=== PATIENT | female | born 1985 | race Caucasian/White ===

== ENCOUNTER 2017-05-07 13:27 | Inpatient (IN) | END 2017-05-09 21:25 | disposition home or self-care (01) | DRG 778 ==

== ENCOUNTER 2017-08-24 11:12 | Inpatient (IN) | END 2017-08-27 21:20 | disposition home or self-care (01) | DRG 766 ==

== ENCOUNTER 2017-11-03 10:49 | Emergency (ER) | END 2017-11-03 12:31 | disposition home or self-care (01) ==

== ENCOUNTER 2018-09-04 13:29 | Emergency (ER) | payer MEDICAID, OTHER ==
[~2018-09-04] VITALS: Ht 157.5 cm; Wt 88.5 kg
[~2018-09-04 13:29] MED LIST: AMOX1TAB10 PO; CIPR7.5D RIGHT EAR; PREN-99 PO
[2018-09-04 13:59] VITALS: BP 149/74; PULSE 91; RESP 16; Ht 157.5 cm; Wt 88.5 kg
--- NOTE | 2018-09-04 15:31 | ERD ---
ER Documentation Chief Complaint Chief Complaint L sided AP x2wks; bilat lower back pain x5d. no NVD, no dysuria. HPI 33-year-old female is here with left-sided abdominal pain that she is had for 2 weeks intermittently. Also 5 days of lower back pain. She finished a course of Macrobid last week for urinary tract infection. She now has no urinary symptoms. No fever. No nausea vomiting or diarrhea. ROS All systems reviewed and are negative except as per history of present illness. Medications Home Meds Active Scripts Ciprofloxacin Hcl/Dexameth (Ciprodex Otic Suspension) 7.5 Ml Drops.susp, 4 DROP RIGHT EAR BID for 7 Days, EA Prov:LYNETTE GAITAN PA-C 11/03/17 Amoxicillin/Potassium Clav (Amox-Clav 875-125 mg Tablet) 875-125 mg Tab, 1 TAB PO BID for 7 Days, #14 TAB Prov:LYNETTE GAITAN PA-C 11/03/17 Reported Medications Vit #76/Iron,Carb/FA (Pnv 29-1 Tablet) 1 Each Tablet, 1 EACH PO DAILY, TAB 05/07/17 Allergies Allergies: Coded Allergies: No Known Allergy (Unverified , 09/04/18) PMhx/Soc History of Surgery: Yes (c section) Anesthesia Reaction: No Hx Neurological Disorder: No Hx Respiratory Disorders: No Hx Cardiac Disorders: No Hx Psychiatric Problems: No Hx Miscellaneous Medical Probl: No Hx Alcohol Use: No Hx Substance Use: No Hx Tobacco Use: No Smoking Status: Never smoker FmHx Family History: No diabetes Physical Exam Vitals Vital Signs Date Temp Pulse Resp B/P (MAP) Pulse Ox O2 O2 Flow FiO2 Time Delivery Rate 09/04/18 98.3 91 16 149/74 98 13:59 (99) Physical Exam INITIAL VITAL SIGNS: Reviewed by me GENERAL: Awake, alert and oriented x 4, well appearing, nontoxic, speaking in full sentences. No acute distress RESPIRATORY: Clear to auscultation bilaterally. Symmetric chest wall rise. No wheezing or rales. No accessory muscle use. CV: Regular rate and rhythm. No murmurs, rubs, or gallops. ABDOMEN: Soft, non-distended. Nontender. Negative [place]. Negative [place] point tenderness. No CVA tenderness bilaterally. No guarding. No rebound. Result Diagram: 09/04/18 1442 09/04/18 1442 Results 24 hrs Laboratory Tests Test 09/04/18 14:42 09/04/18 14:46 White Blood Count 13.0 10^3/ul Red Blood Count 4.75 10^6/ul Hemoglobin 13.5 g/dl Hematocrit 41.7 % Mean Corpuscular Volume 87.8 fl Mean Corpuscular Hemoglobin 28.4 pg Mean Corpuscular Hemoglobin Concent 32.4 g/dl Red Cell Distribution Width 12.9 % Platelet Count 372 10^3/UL Mean Platelet Volume 8.5 fl Immature Granulocytes % 0.300 % Neutrophils % 63.6 % Lymphocytes % 28.7 % Monocytes % 6.5 % Eosinophils % 0.6 % Basophils % 0.3 % Nucleated Red Blood Cells % 0.0 /100WBC Immature Granulocytes # 0.040 10^3/ul Neutrophils # 8.2 10^3/ul Lymphocytes # 3.7 10^3/ul Monocytes # 0.9 10^3/ul Eosinophils # 0.1 10^3/ul Basophils # 0.0 10^3/ul Nucleated Red Blood Cells # 0.0 10^3/ul Urine Color COLORLESS Urine Clarity CLEAR Urine pH 6.0 Urine Specific [place] 1.001 Urine Ketones NEGATIVE mg/dL Urine Nitrite NEGATIVE mg/dL Urine Bilirubin NEGATIVE mg/dL Urine Urobilinogen NEGATIVE mg/dL Urine Leukocyte Esterase NEGATIVE Fabrizio/ul Urine Hemoglobin NEGATIVE mg/dL Urine Glucose NEGATIVE mg/dL Urine Total Protein NEGATIVE mg/dl Sodium Level 138 mmol/L Potassium Level 3.7 mmol/L Chloride Level 102 mmol/L Carbon Dioxide Level 28 mmol/L Anion Gap 8 Blood Urea Nitrogen 12 mg/dl Creatinine 0.65 mg/dl Est Glomerular Filtrat Rate mL/min > 60 mL/min Glucose Level 94 mg/dl Calcium Level 9.0 mg/dl Total Bilirubin 0.4 mg/dl Direct Bilirubin 0.00 mg/dl Indirect Bilirubin 0.4 mg/dl Aspartate Amino Transf (AST/SGOT) 23 IU/L Alanine Aminotransferase (ALT/SGPT) 20 IU/L Alkaline Phosphatase 111 IU/L Total Protein 7.5 g/dl Albumin 4.3 g/dl Globulin 3.20 g/dl Albumin/Globulin Ratio 1.34 Lipase 62 U/L POC Beta HCG, Qualitative NEGATIVE Procedures/MDM The differential diagnosis includes but is not limited to appendicitis, cholelithiasis, cholecystitis, pancreatitis, hepatitis, gastritis, peptic ulcer disease, bowel obstruction, diverticulitis, renal disease including stones, torsion, AAA, pyelonephritis, and others. Laboratory analysis shows no evidence of acute emergent abnormality. No evidence of significant leukocytosis suggesting systemic infection or severe anemia. No evidence of acute renal or liver failure, no evidence of severe alkalosis or acidosis. Exam is normal she has no tenderness to palpation throughout. Patient counseled regarding my diagnostic impression and care plan. Prior to discharge all questions answered. Pt agrees with treatment plan and understands strict return precautions. Pt is instructed to follow up with primary care provider within 24-48 hours. Precautionary instructions provided including instructions to return to the ER if not improving or for any worsening or changing symptoms or concerns. Departure Diagnosis: Primary Impression: Abdominal pain Condition: Stable Patient Instructions: Abdominal Pain Additional Instructions: Call your primary care doctor TOMORROW for an appointment during the next 1-2 days.See the doctor sooner or return here if your condition worsens before your appointment time. JOSEE GRUBER PA-C Sep 04, 2018 15:31
== END 2018-09-04 15:35 | disposition home or self-care (01) ==
LOC: FTE 13:29
DX: R10.30 Lower abdominal pain, unspecified (principal)
CPT/HCPCS: 36415; 80053; 81003; 81025; 83690; 85025; 99283